=== PATIENT | female | born 1975 | race Caucasian/White ===

== ENCOUNTER → 2020-07-23 | Outpatient (CLI) | payer OTHER ==
[~2020-07-23] MED LIST: AMITRIPTYLINE H10 M1 PO; CYMBALTA 60MG60 MG PO; ONE-A-DAY ESSE1 EACH PO; ZOCOR 10MG10 MG PO; ZYRTEC 10MG10 MG PO; [UNRECOGNIZED DRUG - OTHER] PO
== END ==
LOC: COL.PUL 09:49
DX: R91.1 Solitary pulmonary nodule (principal); Z87.891 Personal history of nicotine dependence
CPT/HCPCS: J7674

== ENCOUNTER 2023-07-07 14:47 | Outpatient (CLI) | payer OTHER ==
[~2023-07-07] VITALS: Ht 165.1 cm; Wt 93.0 kg
[2023-07-07] MEDS ORDERED: Denosumab 60 MG/ML SYRINGE SQ ONE (15:00)
[2023-07-07 15:13] VITALS: BP 134/81; PULSE 115; TEMP 98.7
[2023-07-07] MEDS ORDERED: CRESTOR5 MG PO (15:23)
[2023-07-07] MEDS ORDERED: PLAQUENIL 200M200 MG PO (15:23)
[2023-07-07] MEDS ORDERED: ISIBLOOM 28 DA1 EACH PO (15:24)
[2023-07-07] MEDS ORDERED: FLONASEALLERGY NS (15:24)
[2023-07-07] MEDS ORDERED: FLEXERIL 1010 MG/TAB PO (15:25)
--- NOTE | 2023-07-07 15:42 | NUR ---
Pt tolerated prolia without issue. She remained in dept for monitoring following administration. She exits dept with steady gait. No s/s of reaction or complaints at discharge.
== END 2023-07-07 15:42 | disposition home or self-care (01) ==
LOC: EUO 14:47
DX: M85.9 Disorder of bone density and structure, unspecified (principal)
CPT/HCPCS: J0897

== ENCOUNTER → 2023-08-29 | Outpatient (CLI) | payer OTHER ==
[~2023-08-29] MED LIST changes: +CRESTOR5 MG PO; +FLEXERIL 1010 MG/TAB PO; +FLONASEALLERGY NS; +ISIBLOOM 28 DA1 EACH PO; +PLAQUENIL 200M200 MG PO
== END ==
LOC: MHCPAIN 08:52
DX: M53.3 Sacrococcygeal disorders, not elsewhere classified (principal); M51.36 Other intervertebral disc degeneration, lumbar region; M79.2 Neuralgia and neuritis, unspecified; M54.50 Low back pain, unspecified
CPT/HCPCS: G0463